=== PATIENT | male | born 1980 | race African-American/Black ===

== ENCOUNTER 2021-05-20 04:18 | Day surgery (SDC) | payer OTHER ==
[2021-05-18 13:14] VITALS: BMI 28.7
[2021-05-20] MEDS ORDERED: BUPIVACAINE HCL/PF 0.25% (2.5MG/ML) 10 ML VIAL ONE (08:31)
[2021-05-20] MEDS ORDERED: MIDAZOLAM HCL 2 MG/2 ML SINGLE DOSE VIAL ONE ×2 (08:35→08:44)
[2021-05-20] MEDS ORDERED: ceFAZolin SODIUM 1 GM VIAL IVPB ONE (08:55)
[2021-05-20] MEDS ORDERED: BUPIVACAINE HCL/PF 0.25% (2.5MG/ML) 10 ML VIAL IJ ONE (09:03)
[2021-05-20] MEDS ORDERED: oxyCODONE HCL 5 MG TABLET PO PRN ×2 (09:04→09:31)
[2021-05-20] MEDS ORDERED: ONDANSETRON 4 MG/2 ML VIAL IVPUSH PRN (09:04)
[2021-05-20] MEDS ORDERED: LACTATED RINGERS SOLUTION 1,000 ML IV SCH (09:15)
[2021-05-20] MEDS ORDERED: ceFAZolin SODIUM 1 GM VIAL ONE (09:27)
[2021-05-20] MEDS ORDERED: DEXAMETHASONE SOD PHOSPHATE 4 MG/1 ML VIAL ONE (09:27)
[2021-05-20 12:34] VITALS: BP 101/57; PULSE 74; TEMP 98.6
== END 2021-05-20 12:15 | disposition home or self-care (01) ==
LOC: JASU-SURG 04:18
PROVIDERS: ATTEND Urology
PROC: 0VNT0ZZ Release Prepuce, Open Approach (ICD-10-PCS; 2021-05-20)
PROC: 0VTTXZZ Resection of Prepuce, External Approach (ICD-10-PCS; principal; 2021-05-20 08:30)
DX: N47.1 Phimosis (principal); N47.5 Adhesions of prepuce and glans penis
CPT/HCPCS: 82962; 88304-TC; 94760